=== PATIENT | female | born 2000 | race Caucasian/White ===

== ENCOUNTER 2019-02-01 17:36 | Emergency (ER) | payer OTHER, SELFPAY ==
[~2019-02-01] VITALS: Ht 170.2 cm; Wt 62.0 kg
[2019-02-01 18:05] LABS: HEMATOCRIT 40.4 % (36.0-47.0); HEMOGLOBIN 13.1 g/dl (12.0-15.5); MEAN CORPUSCULAR HEMOGLOBIN 29.2 pg (27.0-33.0); MEAN CORPUSCULAR HGB CONC 32.4 g/dl (32.0-36.5); MEAN CORPUSCULAR VOLUME 90.2 fl (80.0-96.0); PLATELET COUNT, AUTOMATED 214 10^3/uL (150-450); RED BLOOD COUNT 4.48 10^6/uL (4.00-5.40); WHITE BLOOD COUNT 6.3 10^3/uL (4.0-10.0)
[2019-02-01 18:32] LABS: HCG, SERUM QUALITATIVE NEGATIVE (NEGATIVE)
[2019-02-01 18:33] LABS: AMPHETAMINES LEVEL URINE NEGATIVE (NEGATIVE); BARBITURATES URINE NEGATIVE (NEGATIVE); BENZODIAZEPINES URINE NEGATIVE (NEGATIVE); CANNABINOIDS URINE NEGATIVE (NEGATIVE); COCAINE METABOLITE URINE NEGATIVE (NEGATIVE); METHADONE URINE NEGATIVE (NEGATIVE); OPIATES URINE NEGATIVE (NEGATIVE); PHENCYCLIDINE URINE NEGATIVE (NEGATIVE)
[2019-02-01 18:42] LABS: ACETAMINOPHEN LEVEL < 2.0 UG/ML (10.0-30.0); ALBUMIN 4.1 GM/DL (3.2-5.2); ALT/SGPT 19 U/L (12-78); BILIRUBIN,DIRECT 0.2 MG/DL (0.0-0.2); BILIRUBIN,TOTAL 0.6 MG/DL (0.2-1.0); BLOOD UREA NITROGEN 11 MG/DL (7-18); CALCIUM LEVEL 9.1 MG/DL (8.5-10.1); CARBON DIOXIDE LEVEL 31 MEQ/L (21-32); CHLORIDE LEVEL 105 MEQ/L (98-107); CREATININE FOR GFR 0.74 MG/DL (0.55-1.30); ETHYL ALCOHOL (ETHANOL) < 0.003 % (0.000-0.010); GLUCOSE, FASTING 71 MG/DL (70-100); POTASSIUM SERUM 3.4 MEQ/L (3.5-5.1); SALICYLATE LEVEL < 1.7 MG/DL (5.0-30.0); SODIUM LEVEL 141 MEQ/L (136-145); THYROID STIMULATING HORMONE 0.987 uIU/ML (0.463-3.98); TOTAL PROTEIN 7.2 GM/DL (6.4-8.2)
[2019-02-01] MEDS ORDERED: GABA600T4 (20:34)
[2019-02-01] MEDS ORDERED: ESCI20TA (20:34)
[2019-02-01] MEDS ORDERED: TRAZ-163 (20:34)
[2019-02-01] MEDS ORDERED: METH40CA4 (20:34)
[2019-02-02] MEDS ORDERED: traZODone 100 MG TAB PO ONE (00:15)
[2019-02-02 10:43] VITALS: BP 95/51
--- NOTE | 2019-02-02 16:44 | ECGEPIP ---
[facility] - ED Test Date: 2019-02-01 Pat Name: MAKENZIE LICEA Department: Room: - Gender: Female Vat Tender: tony : 2000 Requested By: DERRICK WHITE Order Number: [id number] Reading MD: Meera Pena Measurements Intervals [place] Rate: 67 P: 49 [place]: 159 QRS: 85 QRSD: 105 T: 62 QT: 408 QTc: 433 Interpretive Statements SINUS RHYTHM NO PRIOR Electronically Signed on 02-02-2019 16:44:54 EST by Meera Pena
== END 2019-02-02 11:10 ==
LOC: M ED 17:36
DX: R45.851 Suicidal ideations (principal); F32.9 Major depressive disorder, single episode, unspecified; F90.9 Attention-deficit hyperactivity disorder, unspecified type; Z79.899 Other long term (current) drug therapy; Z91.5 Personal history of self-harm
CPT/HCPCS: 36415; 80048; 80076; 80307; 84443; 84703; 85027; 93005; 99284; G0480